=== PATIENT | female | born 1965 | race Caucasian/White ===

== ENCOUNTER 2017-06-07 23:37 | Emergency (ER) | payer SELFPAY ==
[~2017-06-07] VITALS: Ht 165.1 cm; Wt 72.7 kg
[2017-06-07 23:42] VITALS: BP 124/84
== END 2017-06-08 01:13 | disposition left against medical advice (07) ==
LOC: EMS 23:37
DX: M79.644 Pain in right finger(s) (principal); Z53.21 Procedure and treatment not carried out due to patient leaving prior to being seen by health care provider
CPT/HCPCS: 99281

== ENCOUNTER 2023-11-08 10:29 | Emergency (ER) | payer MEDICAID ==
[~2023-11-08] VITALS: Ht 162.6 cm; Wt 65.9 kg
[2023-11-08 10:33] VITALS: TEMP 99
[2023-11-08 11:39] LABS: BASOPHILS % (AUTO) 0.9 % (0.0-2.0); HEMATOCRIT 41.6 % (36-46); HEMOGLOBIN 14.2 g/dL (12.0-16.0); LYMPHOCYTES # (AUTO) 1.6 K/uL (1.0-4.8); LYMPHOCYTES % (AUTO) 22.5 % (22.0-44.0); MEAN CORPUSCULAR HEMOGLOBIN 34.6 pg (26.0-34.0); MEAN CORPUSCULAR HGB CONC 34.2 G/dL (31.0-37.0); MEAN CORPUSCULAR VOLUME 101 fL (80-100); MONOCYTES # (AUTO) 0.4 K/uL (0.1-1.0); MONOCYTES % (AUTO) 5.6 % (2.0-9.0); NEUTROPHILS # (AUTO) 4.9 K/uL (1.8-7.7); PLATELET COUNT (AUTO) 204 K/uL (150-450); RED CELL DISTRIBUTION WIDTH 13.5 % (11.5-14.5)
[2023-11-08 11:40] LABS: RBC MORPHOLOGY COMMENT ABNORMAL RBC MORPH
[2023-11-08 11:50] LABS: ANION GAP 7 mmol/L (8-16); CALCIUM, TOTAL 9.8 mg/dL (8.8-10.5); CARBON DIOXIDE 29 mmol/L (22-29); CHLORIDE 104 mmol/L (98-107); CREATININE 0.68 mg/dL (0.60-1.30); GLOMERULAR FILTR. RATE CALC > 60 mL/min (>60); GLUCOSE,RANDOM 115 mg/dL (70-110); LIPASE 28 U/L (16-77); POTASSIUM 4.2 mmol/L (3.5-5.1); SODIUM SERUM 140 mmol/L (136-145); UREA NITROGEN, BLOOD 14 mg/dL (7-18)
[2023-11-08 11:58] LABS: TROPONIN I-HIGH SENSITIVITY Less Than 4 ng/L (<51)
[2023-11-08] MEDS: CefTRIAXone SODIUM 1 GM/VIAL IM ONE (12:45)
[2023-11-08] MEDS: LIDOCAINE/PF 1% 2 ML VIAL IM ONE (12:45)
[2023-11-08] MEDS: AZITHROMYCIN 500 MG TABLET PO ONE (12:48)
[2023-11-08 13:50] VITALS: BP 112/70; PULSE 80; RESP 16
[2023-11-09] MEDS ORDERED: MIRT-89 PO (13:48)
[2023-11-09] MEDS ORDERED: MELA5TAB40 PO (13:48)
[2023-11-09] MEDS ORDERED: ALPR-705 PO (13:48)
[2023-11-09] MEDS ORDERED: OMEG-135 PO (13:48)
[2023-11-10] MEDS ORDERED: ALPR-705 PO (15:23)
[2023-11-10] MEDS ORDERED: OMEG-135 PO (15:28)
[2023-11-11] MEDS ORDERED: OMEG-135 PO (19:35)
[2023-11-11] MEDS ORDERED: MIRT-89 PO (19:35)
[2023-11-11] MEDS ORDERED: ALPR-705 PO (19:35)
== END 2023-11-08 14:51 | disposition home or self-care (01) ==
LOC: EMS 10:31
DX: R10.84 Generalized abdominal pain (principal); F41.9 Anxiety disorder, unspecified; I10 Essential (primary) hypertension; Z90.49 Acquired absence of other specified parts of digestive tract; Z90.721 Acquired absence of ovaries, unilateral; Z98.890 Other specified postprocedural states
CPT/HCPCS: 99283; 80048; 83690; 84484; 85025; 36415; 96372; J0696; J3490; Q9967

== ENCOUNTER 2023-11-13 11:19 | Emergency (ER) | payer MEDICAID ==
[~2023-11-13] VITALS: Ht 165.1 cm; Wt 65.9 kg
[~2023-11-13 11:19] MED LIST: MELA5TAB40 PO; MIRT-89 PO; OMEG-135 PO
[2023-11-13 11:29] VITALS: BP 113/67; PULSE 76; RESP 16; TEMP 98
[2023-11-13] MEDS ORDERED: ACET-2247 PO (11:38)
[2023-11-13] MEDS ORDERED: IBUP-1492 PO (11:38)
[2023-11-13] MEDS: IBUPROFEN 600 MG TABLET PO ONE (11:39)
== END 2023-11-13 11:53 | disposition home or self-care (01) ==
LOC: EMS 11:19
DX: M25.511 Pain in right shoulder (principal); F41.9 Anxiety disorder, unspecified; F32.A Depression, unspecified; I10 Essential (primary) hypertension; Z90.49 Acquired absence of other specified parts of digestive tract; Z90.722 Acquired absence of ovaries, bilateral
CPT/HCPCS: 99282; Z7502; Z7610